=== PATIENT | male | born 1995 | race Two or more races ===

== ENCOUNTER 2022-03-26 18:29 | Emergency (ER) | payer MEDICAID ==
[~2022-03-26] VITALS: Ht 170.2 cm; Wt 50.0 kg
[2022-03-26 18:32] VITALS: BP 156/89
[2022-03-26] MEDS ORDERED: HYDR-4001 MT (20:05)
[2022-03-26] MEDS ORDERED: IBUPROFEN 600MG TABLET PO ONE (20:15)
[2022-03-26] MEDS ORDERED: PREDNISONE 20MG TABLET PO ONE (20:15)
[2022-03-26] MEDS ORDERED: HYDROCODONE/ACETAMINOPHEN 5/325MG TABLET PO ONE (20:15)
== END 2022-03-26 20:10 | disposition home or self-care (01) ==
LOC: ER 18:29
DX: M54.42 Lumbago with sciatica, left side (principal)
CPT/HCPCS: 99284; J7512